=== PATIENT | male | born 1970 | race Two or more races ===

== ENCOUNTER 2018-05-11 11:12 | Day surgery (SDC) | payer BC ==
[~2018-05-11 11:12] MED LIST: Buffered Lidocaine 0.9% SYRIN* 5 ML/SYR SYRINGE INTRADERM ONE; Dexamethasone TAB* 4 MG PO ONE; DiMENhydriNATE IV* 50 MG/ML VIAL IV PUSH PRN; Famotidine IV* 10 MG/ML 2 ML (20 mg) IV ONE; Morphine INJ* 2 MG/ML 1 ML CARPUJECT IV PRN; Naloxone* 0.4 MG/ML 1 ML VIAL IV PRN; Ondansetron INJ* 2 MG/ML VIAL ONE; PROCHLORPERAZINE INJ 5 MG/ML 2 ML VIAL IV PRN; Scopolamine 1.5 mg* PATCH TRANSDERM PRN; fentaNYL* 50 MCG/ML 2 ML VIAL (100 MCG VIAL) IV PRN; oxyCODONE/Acetamin 5/325 MG* TAB PO PRN
[2018-05-11] MEDS ORDERED: Famotidine IV* 10 MG/ML 2 ML (20 mg) ONE (11:30)
[2018-05-11] MEDS ORDERED: Ondansetron ODT TAB* 4 MG ONE (11:30)
[2018-05-11] MEDS ORDERED: Buffered Lidocaine 0.9% SYRIN* 5 ML/SYR SYRINGE ONE (11:31)
[2018-05-11] MEDS ORDERED: Dexamethasone TAB* 4 MG ONE (11:31)
[2018-05-11] MEDS ORDERED: Midazolam* 1 MG/ML 5 ML VIAL (5 MG) ONE (11:43)
[2018-05-11] MEDS ORDERED: fentaNYL* 50 MCG/ML 2 ML VIAL (100 MCG VIAL) ONE (11:43)
[2018-05-11] MEDS ORDERED: KETAMINE HCL* 50 MG/ML 10 ML VIAL ONE (11:43)
[2018-05-11] MEDS ORDERED: Lidocaine 1% MPF wEPI 200,000* 30 ML SDV ONE (12:06)
[2018-05-11] MEDS ORDERED: Bupivacaine 0.5% SDV PF* 30ML VIAL ONE (12:06)
[2018-05-11] MEDS ORDERED: Lidocaine 2% JELLY* 6 ML JELLY TOPICAL ONE (12:07)
[2018-05-11] MEDS ORDERED: Propofol* 10 MG/ML 20 ML BTL IV PUSH ONE (12:53)
[2018-05-11] MEDS ORDERED: Labetalol IV* 5 MG/ML 20 ML VIAL ONE (12:53)
[2018-05-11] MEDS ORDERED: Ketorolac INJ* 30 MG/ML 1 ML VIAL ONE (12:53)
[2018-05-11] MEDS ORDERED: hydrALAZINE IV* 20 MG/ML VIAL ONE (12:53)
[2018-05-11] MEDS ORDERED: Lidocaine 2% PF * 5 ML VIAL ONE (12:53)
[2018-05-11 13:40] VITALS: BP 141/84
--- NOTE | 2018-05-12 07:03 | OP ---
DATE OF OPERATION: 05/11/18 - [facility] DATE OF : 70 SURGEON: Familia Wisdom MD SURGICAL DRESSING MAKER: None. ANESTHESIOLOGIST: Dr. Schwartz. ANESTHESIA: Local with monitored anesthesia care. 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 POST-OP DIAGNOSIS: Chronic left lateral anal fissure. OPERATIVE PROCEDURE: Anorectal exam under anesthesia with biopsy of perianal skin. ESTIMATED BLOOD LOSS: Minimal. SPECIMENS: Portion of perianal skin sent in formalin. WOUND CLASSIFICATION: IV. DRAINS: None. COMPLICATIONS: None. BRIEF HISTORY: Mr. Álvaro Desai is a 48-year-old gentleman who had presented initially with a what appeared to be an anal fissure in the lateral position at about the 10 o'clock position in the prone position. This has not responded to supportive care and he has no other associated symptoms. He does have some increased risk for anal malignancy and is now being taken to the operating room for an exam under anesthesia with biopsy to rule out malignancy in this fissure of an unusual location. DESCRIPTION OF PROCEDURE: Written informed consent was obtained. The patient was taken to the operating room, placed in the prone raul-knife position. Sequential compression devices and a warming blanket were applied. Anesthesia was administered and the buttock and perineum was prepped and draped in the usual sterile fashion. Time-out verification was completed. A 0.25% Marcaine mixed with 1% lidocaine was infiltrated mainly along the left lateral perianal area performed in the usual anal block. Visual examination of the anal verge area noted a radial oriented ulceration extending out from the anal canal on to the perianal skin. Digital rectal exam showed no mass, blood, or other abnormality. Using anal retractors, the distal rectal mucosa appeared to be unremarkable. There were some small internal hemorrhoids, but no evidence of ulceration, fistulous opening, or abscess noted. The chronic appearing fissure at about the 10 o'clock position extended out on to the perianal skin, but did not appear to extend particularly high up into the anal canal, somewhat atypical and unexpected for an anal fissure. There was some heaped up skin, which was firm in one area of the fissure and this area was biopsied and sent for specimen placed in formalin. Hemostasis was obtained with a [id number] 3-0 Vicryl suture. I noted no other anal canal abnormalities. Lidocaine jelly was placed in the anal canal. Dry dressing was applied. The patient tolerated the procedure well and was taken to the recovery room in stable condition. [id number]/[facility] #: [id number] MTDD
[2018-05-14] MEDS ORDERED: Scopolamine PATCH Remove* 1 NOTE MISC PATCH OFF ONE (06:51)
== END 2018-05-11 14:07 | disposition home or self-care (01) ==
LOC: OR 11:12
PROVIDERS: ATTEND Surgery
DX: K60.2 Anal fissure, unspecified (principal); K62.5 Hemorrhage of anus and rectum; I10 Essential (primary) hypertension
CPT/HCPCS: 88305; A9270-GY; J0360; J1885; J2001; J2250; J2704; J3010; J8540